=== PATIENT | female | born 1990 | race Caucasian/White ===

== ENCOUNTER 2021-04-26 08:47 | Emergency (ER) | payer SELFPAY ==
[~2021-04-26] VITALS: Ht 165.1 cm; Wt 65.8 kg
--- NOTE | 2021-04-26 09:02 | NUR ---
PT AMBULATED TO BED 2
[2021-04-26 09:06] VITALS: BP 123/66
--- NOTE | 2021-04-26 09:14 | NUR ---
31 Y FEMALE WITH C/O RASH FOUND ON BILATERAL LE AND BILATERAL UE. PT STATED THE RASH STARTED ON FRIDAY AND YET TO RELIEVE ITSELF. PT APPLIES CERAVE CREAM AT HOME WITH LITTLE RELIEF. PT BELIEVES TO BE HAVING A FLARE UP FROM HER ECZEMA. REDNESS NOTED ON BILATERAL UE AC REGION ALONG WITH BILATERAL LEGS THIGH TO PINEDA REGION. PMH: ECZEMA, ASTHMA ALLERGIES: AMOXICILLIN
[2021-04-26] MEDS ORDERED: PRED20TA5 PO (09:53)
[2021-04-26] MEDS ORDERED: HYD1C TP (09:53)
[2021-04-26] MEDS ORDERED: BEN50 PO (09:53)
[2021-04-26 10:23] VITALS: BP 123/66
--- NOTE | 2021-04-26 10:51 | NUR ---
Patient discharged with v/s stable. Written and verbal after care instructions given and explained. Patient alert, oriented and verbalized understanding of instructions. Ambulatory with steady gait. All questions addressed prior to discharge. ID band removed. Patient advised to follow up with PMD. Rx of BENADRYL, HYDROCORTISONE, AND DELTASONE given. Patient educated on indication of medication including possible reaction and side effects. Opportunity to ask questions provided and answered.
== END 2021-04-26 10:51 | disposition home or self-care (01) ==
LOC: MED 08:47
DX: R21 Rash and other nonspecific skin eruption (principal); J45.909 Unspecified asthma, uncomplicated; Z98.890 Other specified postprocedural states; Z88.1 Allergy status to other antibiotic agents
CPT/HCPCS: 99283